=== PATIENT | male | born 1965 | race American Indian/Alaskan Native ===

== ENCOUNTER 2021-11-09 07:21 | Emergency (ER) | payer OTHER | END 2021-11-09 09:30 | disposition home or self-care (01) | LOC: ER 07:21 | DX: S70.02XA Contusion of left hip, initial encounter (principal); S00.83XA Contusion of other part of head, initial encounter; S80.212A Abrasion, left knee, initial encounter; S90.812A Abrasion, left foot, initial encounter; Y04.2XXA Assault by strike against or bumped into by another person, initial encounter; Z87.891 Personal history of nicotine dependence; Z79.899 Other long term (current) drug therapy ==

== ENCOUNTER 2021-12-28 12:07 | Emergency (ER) | payer OTHER ==
[~2021-12-28] VITALS: Ht 180.3 cm; Wt 99.8 kg
[~2021-12-28 12:07] MED LIST: IBUP400 PO; MEDICAL MARIJUANA; NAPR500 PO; TRAM50 PO; [UNRECOGNIZED DRUG - CODE] TOP
[2021-12-28] MEDS ORDERED: Mupirocin22 GM TOP (13:56)
== END 2021-12-28 14:10 | disposition home or self-care (01) ==
LOC: ER 12:07
DX: L03.011 Cellulitis of right finger (principal); Z88.5 Allergy status to narcotic agent; Z87.891 Personal history of nicotine dependence
CPT/HCPCS: 10060; 99282-25